=== PATIENT | female | born 2000 | race Two or more races ===

== ENCOUNTER 2021-09-30 22:15 | Emergency (ER) | payer MEDICAID, OTHER ==
[~2021-09-30] VITALS: Ht 162.6 cm; Wt 99.8 kg
[2021-09-30 23:35] LABS: Basophils # (auto) 0.1 10 ^3/uL (0-0.2); Basophils % (auto) 0.5 % (0.0-2.0); Eosinophils # (auto) 0.2 10 ^3/uL (0-0.8); Eosinophils % (auto) 1.9 % (0.0-7.0); Hematocrit 38.1 % (36.0-46.0); Hemoglobin 12.6 g/dL (12.2-16.2); Lymphocytes # (auto) 3.8 10 ^3/uL (0.4-5.4); Lymphocytes % (auto) 33.9 % (10.0-50.0); Mean Corpuscular Hemoglobin 24.4 pg (28.0-32.0); Monocytes # (auto) 0.6 10 ^3/uL (0-1.3); Monocytes % (auto) 5.1 % (0.0-12.0); Neutrophils # (auto) 6.6 10 ^3/uL (1.6-8.6); Neutrophils % (auto) 58.6 % (37.0-80.0); Nucleated Red Blood Cells % 0.1 %; Red Blood Cells 5.14 10^6/uL (4.0-5.20); Red Cell Distribution Width 15.6 % (11.8-14.3); White Blood Cell 11.3 10^3/uL (4.4-10.8)
[2021-09-30 23:53] LABS: Albumin 4.1 g/dL (3.4-5.0); BUN/Creatinine Ratio 20.9; Calcium 9.1 mg/dL (8.5-10.1); Potassium 3.8 mmol/L (3.5-5.1)
[2021-09-30 23:57] LABS: Bilirubin, Total 0.3 mg/dL (0.2-1.0); Total Protein 8.1 g/dL (6.4-8.2)
[2021-10-01 00:24] LABS: INR 0.99 (0.9-1.15); Partial Thromboplastin Time 26.1 sec (23.6-33.0)
[2021-10-01 03:00] VITALS: BP 133/60
== END 2021-10-01 03:42 | disposition left against medical advice (07) ==
LOC: ER 22:18
DX: S01.112A Laceration without foreign body of left eyelid and periocular area, initial encounter (principal); W54.0XXA Bitten by dog, initial encounter; Y93.89 Activity, other specified; Y92.89 Other specified places as the place of occurrence of the external cause; Y99.8 Other external cause status
CPT/HCPCS: 36415; 80053; 85025; 85610; 85730